=== PATIENT | male | born 1970 | race Caucasian/White ===

== ENCOUNTER 2018-09-24 19:18 | Emergency (ER) | payer OTHER ==
[2018-09-24 19:24] VITALS: BP 156/94; PULSE 98; TEMP 98.2; BMI 26.7
--- NOTE | 2018-09-24 19:25 | PDOC ---
Rapid Medical Evaluation Chief Complaint: Pain Time Seen by Provider: 09/24/18 19:20 Medical Evaluation: Allergies Allergy/AdvReac Type Severity Reaction Status Date / Time No Known Drug Allergies Allergy Verified 09/12/14 09:34 09/24/18 19:22 I have performed a brief in-person evaluation of this patient. The patient presents with a chief complaint of: Upper abd pain w/ nausea and bloating today, worse w/ food. H/o HTN, DM, HCV (since treated) per pt Pertinent physical exam findings:stable and in NAD w/ ttp to mid upper abd I have ordered the following:ekg/labs The patient will proceed to the ED for further evaluation. Discharge Disposition - Diagnosis Upper abdominal pain - Referrals - Patient Instructions - Post Discharge Activity
[2018-09-24] MEDS ORDERED: ACETAMINOPHEN 1000 MG/100 ML VIAL (NON FORMULARY) IVPB ONE (20:53)
[2018-09-24] MEDS ORDERED: SODIUM CHLORIDE 1,000 ML IV STA (20:53)
--- NOTE | 2018-09-24 20:58 | PDOC ---
History of Present Illness - General Chief Complaint: Pain Stated Complaint: epigastric pain Time Seen by Provider: 09/24/18 19:20 History Source: Patient Exam Limitations: No Limitations - History of Present Illness Travel History: No Initial Comments: 09/24/18 20:58 HISTORY OF PRESENT ILLNESS: This is a 48-year-old male past medical history of hypertension and type 2 diabetes who presents emergency Department for evaluation of epigastric pain which started today. Patient reports he was at work when he began to experience some sudden onset epigastric pain. Reports the pain was a 9/10 at that time and described as a squeezing feeling. Patient is unable to identify any aggravating or alleviating factors. Upon arrival in the emergency department pain has migrated to his right upper quadrant and has been experiencing mild nausea. Patient denies any fevers, chills, vomiting, diarrhea , constipation. No recent travel or sick contacts. PAST MEDICAL HISTORY: see HPI SURGICAL HISTORY: Denies ALLERGIES: No known drug allergies REVIEW OF SYSTEMS General/Constitutional: Denies fever or chills. Denies weakness, weight change. HEENT: Denies change in vision. Denies ear pain or discharge. Denies sore throat. Cardiovascular: Denies chest pain or shortness of breath. Respiratory: Denies cough, wheezing, or hemoptysis. Gastrointestinal: see HPI Genitourinary: Denies dysuria, frequency, or change in urination. Musculoskeletal: Denies joint or muscle swelling or pain. Denies neck or back pain. Skin and breasts: Denies rash or easy bruising. Neurologic: Denies headache, vertigo, loss of consciousness, or loss of sensation. Psychiatric: Denies depression or anxiety. Endocrine: Denies increased thirst. Denies abnormal weight change. Hematologic/Lymphatic: Denies anemia, easy bleeding, or history of blood clots. Allergic/Immunologic: Denies hives or skin allergy. Denies latex allergy. PHYSICAL EXAM General Appearance: Well-appearing, appropriately dressed. No apparent distress , no intoxication. Respiratory/Chest: Lungs CTAB. No shortness of breath, chest tenderness, respiratory distress, accessory muscle use. No crackles, rales, rhonchi, stridor , wheezing, dullness Cardiovascular: RRR. S1, S2. No JVD, murmur, bradycardia, tachycardia. Gastrointestinal/Abdominal: Normal bowel sounds. Abdomen soft, non-distended. RUQ tenderness or rebound tenderness. No organomegaly, pulsatile mass, guarding , hernia, hepatomegaly, splenomegaly. Negative Reyez's. Lymphatic: No adenopathy, tenderness. Integumentary: Appropriate color, dry, warm. 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 Fully oriented, alert. Appropriate mood/affect. Motor strength 5/5. No appreciable EOM palsy, facial droop or sensory deficit. Past History - Past Medical History Allergies/Adverse Reactions: Allergies Allergy/AdvReac Type Severity Reaction Status Date / Time No Known Drug Allergies Allergy Verified 09/24/18 19:24 Home Medications: Ambulatory Orders Lisinopril [Prinivil] 20 mg PO DAILY 09/12/14 metFORMIN HCL [Glucophage -] 850 mg PO BID 09/12/14 Insulin Glargine,Hum.rec.anlog [Lantus Solostar PEN (NF)] 10 units SQ HS Liraglutide [Victoza -] 01/03/15 Lovastatin 20 mg PO DAILY tablet 06/01/15 Neopolina 07/20/15 COPD: No Diabetes: Yes GI Disorders: Yes (GERD) HTN: Yes Liver Disease: Yes (CIRRHOSIS) - Suicide/Smoking/Psychosocial Hx Smoking History: Unknown if ever smoked Have you smoked in the past 12 months: No Information on smoking cessation initiated: No Hx Alcohol Use: No Drug/Substance Use Hx: No *Physical Exam - Vital Signs Last Vital Signs Temp Pulse Resp BP Pulse Ox 98.2 F 98 H 16 156/94 100 09/24/18 19:22 09/24/18 19:22 09/24/18 19:22 09/24/18 19:22 09/24/18 19:22 Heart Score/ECG Review - History History: Slightly suspicious - Electrocardiogram EKG: Normal - Age Age: 45-65 - Risk Factors Risk Factors Heart Score: Yes Hx Hypertension, Yes Hx Diabetes Based on the list above the patient has:: 1-2 risk factors - Troponin Troponin: </= normal limit - Score Heart Score - Total: 2 - ECG Intrepretation Rhythm: Regular Rhythm - [place]: Normal ED Treatment Course - LABORATORY CBC & Chemistry Diagram: 09/24/18 21:22 09/24/18 21:22 - RADIOLOGY Radiology Studies Ordered: Category Date Time Status ABDOMEN US -LIMITED [US] Stat Ultrasound 09/24/18 20:52 Ordered Medical Decision Making - Medical Decision Making 09/24/18 21:01 A/P: 48-year-old male with sudden onset epigastric pain starting approximately 6 hours ago Differential diagnosis includes but is not limited to-ACS, gastritis, pancreatitis, cholecystitis, choledocholithiasis, gallstones, GERD, electrolyte imbalance, pneumonia Labs including cardiac profile and lipase Normal saline 1 L bolus Gallbladder ultrasound IV Tylenol 1 g Reassess 09/24/18 23:56 EKG sinus rhythm with rate of 86. Normal FL interval. QRS 126 ms. QT is within normal limits normal axis. No ischemic changes present. 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 Poor visualization of the tail of the pancreas due to overlying bowel gas. Otherwise unremarkable right upper quadrant abdominal sonogram. CBC is unremarkable Chemistries are unremarkable Lipase is within normal limits Cardiac profile is within normal limits Repeat abdominal exam is benign and patient is currently pain-free. 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 I discussed the physical exam findings, ancillary test results and final diagnoses with the patient. I answered all of the patient's questions. The patient was satisfied with the care received and felt comfortable with the discharge plan and treatment plan. The patient will call their primary care physician within 24 hours to arrange follow-up and will return to the Emergency Department with any new, persistent or worsening symptoms. *DC/Admit/Observation/Transfer Diagnosis at time of Disposition: Upper abdominal pain - Discharge Dispostion Disposition: HOME Condition at time of disposition: Fair Decision to Admit order: No - Referrals Referrals: Liv Soto MD [Primary Care Provider] - - Patient Instructions Additional Instructions: Eat a well-balanced diet. Keep well-hydrated. Make an appointment with your primary doctor or patrol police sergeant for reevaluation. Return to emergency department for any new or worsening symptoms Thank you very much for choosing us to provide your emergent care needs. - Post Discharge Activity
[2018-09-24] MEDS ORDERED: ACETAMINOPHEN INJECTION 100 ML IVPB ONE (22:14)
[2018-09-24 22:20] LABS: BASO % 0.7 % (0-2.0); EOS % 0.3 % (0-4.5); HEMATOCRIT 51.9 % (35.4-49); HEMOGLOBIN 17.4 GM/dL (11.7-16.9); LYMPH % 18.8 % (8-40); MCHC 33.6 g/dl (32.0-35.9); MEAN CELL VOLUME 95.3 fl (80-96); MEAN PLT VOLUME 8.9 fl (7.5-11.1); MONO % 7.8 % (3.8-10.2); NEUT % 72.4 % (42.8-82.8); PLATELET COUNT 203 K/MM3 (134-434); RBC 5.45 M/mm3 (4.00-5.60); RDW 13.5 % (11.9-15.9); WHITE BLOOD COUNT 9.4 K/mm3 (4.0-10.0)
[2018-09-24 23:40] LABS: ALBUMIN 4.6 g/dl (3.4-5.0); BILIRUBIN,TOTAL 0.5 mg/dL (0.2-1); CALCIUM 10.3 mg/dL (8.5-10.1); CREATININE 1.1 mg/dL (0.55-1.3); POTASSIUM 4.4 mmol/L (3.5-5.1); TOT PROT 8.6 g/dl (6.4-8.2)
--- NOTE | 2018-09-25 14:02 | EKG ---
Test Reason : Blood Pressure : / mmHG Vent. Rate : 086 BPM Atrial Rate : 086 BPM P-R Int : 120 ms QRS Dur : 126 ms QT Int : 384 ms P-R-T Axes : 056 015 015 degrees QTc Int : 459 ms NORMAL SINUS RHYTHM RIGHT BUNDLE BRANCH BLOCK ABNORMAL ECG NO PREVIOUS ECGS AVAILABLE Confirmed by SANTIAGO SWENSON, MALDONADO ([id number]) on 09/25/2018 2:02:03 PM Referred By: Confirmed By:MALDONADO HENDERSON MD
== END 2018-09-25 00:14 | disposition home or self-care (01) ==
LOC: JER 19:18
PROC: 3E033NZ Introduction of Analgesics, Hypnotics, Sedatives into Peripheral Vein, Percutaneous Approach (ICD-10-PCS; principal; 2018-09-24)
PROC: 3E0337Z Introduction of Electrolytic and Water Balance Substance into Peripheral Vein, Percutaneous Approach (ICD-10-PCS; 2018-09-24)
DX: R10.10 Upper abdominal pain, unspecified (principal); E11.9 Type 2 diabetes mellitus without complications
CPT/HCPCS: 36415; 76705-TC; 80053; 82550; 83690; 84484; 85025; 93005; 93010; 99283-25; J0131; J7030